=== PATIENT | male | born 1965 | race Hispanic/Latino ===

== ENCOUNTER 2016-11-25 12:15 | Emergency (ER) | payer BC, OTHER ==
[2016-11-25 12:15] VITALS: BMI 29.5
[2016-11-25 12:23] VITALS: BP 117/81; PULSE 83; RESP 16; TEMP 98.6; O2SAT 98
--- NOTE | 2016-11-25 13:26 | ED PDOC ---
Arrival/HPI - History of Present Illness Symptom Onset: Gradual Symptom Course: Unchanged Quality: Fullness Severity Level: 1 Activities at Onset: Light Context: Walking <Shane Mera - Last Filed: 11/25/16 14:49> <Lyle Mckeon - Last Filed: 11/25/16 15:26> - General Chief Complaint: Chest Pain Time Seen by Provider: 11/25/16 12:31 - History of Present Illness Narrative History of Present Illness (Text): 11/25/16 13:21 This is a 51 yr. old male with a past medical history of HIV and GERD who comes into the [facility] with complaints of chest fullness for one day. The patient states that while he was walking yesterday he started to feel chest fullness. The patient also reports that the chest fullness radiates to the throat when lying down in bed. The patient reports that when sitting up and bending forward that the fullness goes away. The patient denies taking anything for the chest fullness sensation. The patient denies any fever, chills , shortness of breath, lightheadedness, weakness, headaches or any other complaints. (Shane Mera) Past Medical History - Provider Review Nursing Documentation Reviewed: Yes - Past History Past History: Non-Contributing - Infectious Disease Hx of Infectious Diseases: None - Tetanus Immunization Tetanus Immunization: Unknown - Cardiac Hx Cardiac Disorders: Yes - Hematological/Oncological Hx Hepatitis A: Yes - Musculoskeletal/Rheumatological Hx Falls: No - Psychiatric Hx Depression: No Hx Emotional Abuse: No Hx Physical Abuse: No Hx Substance Use: No (quit 7 years ago) - Past Surgical History Past Surgical History: No Previous - Suicidal Assessment Feels Threatened In Home Enviroment: No <Shane Mera - Last Filed: 11/25/16 14:49> Family/Social History - Physician Review Nursing Documentation Reviewed: Yes Family/Social History: Hypertension Smoking Status: Never Smoked Hx Alcohol Use: Yes (social) Hx Substance Use: No (quit 7 years ago) Hx Substance Use Treatment: No <Shane Mera - Last Filed: 11/25/16 14:49> Allergies/Home Meds <Shane Mera - Last Filed: 11/25/16 14:49> <Lyle Mckeon - Last Filed: 11/25/16 15:26> Allergies/Adverse Reactions: Allergies No Known Allergies Allergy (Verified 09/02/13 06:39) Home Medications: Home Meds Medication Instructions Recorded Confirmed Atorvastatin [Lipitor] 40 mg PO DAILY 09/02/13 11/25/16 Efavirenz/Emtricitabine/Teno 1 tab PO DAILY 11/25/16 11/25/16 [Atripla 600 MG-200 MG-300 MG] Review of Systems - Physician Review All systems were reviewed & negative as marked: Yes - Review of Systems Constitutional: Normal. absent: Fatigue, Weight Change, Fevers, Night Sweats Eyes: Normal. absent: Vision Changes, Eye Pain ENT: Normal. absent: Hearing Changes, Sore Throat, Sinus Congestion Respiratory: Normal. absent: SOB, Cough, Wheezing Cardiovascular: Normal, Chest Pain. absent: Palpitations, Calf Pain, Syncope Gastrointestinal: Normal. absent: Abdominal Pain, Constipation, Diarrhea, Hematochezia, Hematemesis Genitourinary Male: Normal. absent: Dysuria, Frequency, Hematuria Musculoskeletal: Normal. absent: Back Pain, Joint Swelling, Myalgias Skin: Normal. absent: Rash, Skin Lesions, Laceration Neurological: Normal. absent: Headache, Dizziness, Disequilibrium Endocrine: Normal. absent: Polyuria, Polydipsia Hemo/Lymphatic: Normal. absent: Easy Bleeding, Easy Bruising <Shane Mera - Last Filed: 11/25/16 14:49> Physical Exam Vital Signs Reviewed: Yes Temperature: Afebrile Blood Pressure: Normal Pulse: Regular Respiratory Rate: Normal Appearance: Positive for: Well-Appearing, Non-Toxic, Comfortable Pain Distress: Mild Mental Status: Positive for: Alert and Oriented X 3 - Systems Exam Head: Present: Atraumatic, Normocephalic Pupils: Present: PERRL Extroacular Muscles: Present: EOMI. No: Gaze Palsy Conjunctiva: Present: Normal. No: Injected Mouth: Present: Moist Mucous Membranes. No: Dry, Drooling Neck: Present: Normal Range of Motion. No: JVD, Lymphadenopathy Respiratory/Chest: Present: Clear to Auscultation, Good Air Exchange. No: Respiratory Distress, Accessory Muscle Use, Wheezes Cardiovascular: Present: Regular Rate and Rhythm, Normal S1, S2. No: Murmurs, Tachycardic, Bradycardic Abdomen: Present: Normal Bowel Sounds. No: Tenderness, Distention, Peritoneal Signs, Rebound, Guarding Upper Extremity: Present: Normal Inspection. No: Cyanosis, Edema, Swelling, Erythema Lower Extremity: Present: Normal Inspection, NORMAL PULSES. No: Edema, Swelling Neurological: Present: CN II-XII Intact Skin: Present: Dry, Normal Color. No: Warm, Rashes Lymphatic: No: Cervical Adenopathy Psychiatric: Present: Alert, Oriented x 3. No: Normal Insight, Normal Concentration <Shane Mera - Last Filed: 11/25/16 14:49> Medical Decision Making - RAD Interpretation Crane Mechanic: Radiologist - EKG Interpretation Interpreted by ED Physician: Yes Type: 12 lead EKG <Shane Mera - Last Filed: 11/25/16 14:49> <Lyle Mckeon - Last Filed: 11/25/16 15:26> ED Course and Treatment: 11/25/16 13:37 This is a 51 yr old male with a past medical history of GERD and HIV who presents to [facility] complaining of chest fullness for one day. The patient had labs and imaging done including: cbc w/diff, cmp, cardiac iso, ekg, cxr. He was giving Aspirin PO 325mg. Patient will be re-evaluated after lab and imaging studies come back. Patient reports wanting to leave the hospital. Patient will sign out AMA. Patient should return to the [facility] if any new or concerning symptoms arise. (Shane Mera) 11/25/16 14:55 Patient seen and examined with resident. Came up with treatment and disposition plan with resident. 51yo male, states he has a hx of HIV, last CD4 >400, with chest discomfort. No st-segment elevations on EKG pt advised to stay in the hospital for further w/u, but asking to be dc'd home instead The patient refuses admission and wishes to leave the Emergency Department against my medical advice. Patient was told that admission to the hospital is necessary and a full explanation of the reasons why was given, and understood by patient. The risks of leaving were explained and include worsening of condition, and permanent disability and from an undiagnosed or untreated condition. The patient accepts these risks, and is in my judgment is competent and capable of understanding the clinical situation and my explanation of the risks of leaving. Patient was given the opportunity to ask questions and change mind. The patient was instructed regarding the best care for the present symptoms, and to follow up with a motion picture operator as soon as possible, or return to the Emergency Department at any time for continuing care. (Lyle Mckeon) - Lab Interpretations Lab Results: 11/25/16 13:28 11/25/16 13:28 Lab Results 11/25/16 13:28: WBC 9.2, RBC 4.34, Hgb 14.1, Hct 39.3 L, MCV 90.6, MCH 32.5, MCHC 35.9, RDW 12.3, Plt Count 254, MPV 9.7, Gran % 48.7 L, Lymph % (Auto) 35.2 H, [place] % (Auto) 13.5 H, Eos % (Auto) 2.2, Baso % (Auto) 0.4, Gran # 4.47, Lymph # 3.2, [place] # 1.2 H, Eos # 0.2, Baso # 0.04 11/25/16 13:28: Sodium 135, Potassium 3.9, Chloride 96 L, Carbon Dioxide 27, Anion Gap 16, BUN 19, Creatinine 1.1, Est GFR ( Amer) > 60, Est GFR (Non- Af Amer) > 60, Random Glucose 97, Calcium 9.7, Total Bilirubin 0.5, AST 70 H, ALT 55, Alkaline Phosphatase 95, Lactate Dehydrogenase 620, Total Creatine Kinase 848 H, CK-MB (CK-2) 5.7 H, CK-MB (CK-2) % 0.7 L, Troponin I < 0.01, Total Protein 9.0 H, Albumin 4.9 H, Globulin 4.1, Albumin/Globulin Ratio 1.2 - RAD Interpretation Radiology Orders: 11/25/16 14:05 CHEST PORTABLE [RAD] Stat 11/25/16 14:40 CHEST ONE VIEW [RAD] Stat - Medication Orders Current Medication Orders: Discontinued Medications Acetaminophen (Tylenol 325mg Tab) 325 mg PO STAT STA Stop: 11/25/16 13:14 Last Admin: 11/25/16 13:35 Dose: Aspirin (Aspirin) 325 mg PO STAT STA Stop: 11/25/16 13:21 Last Admin: 11/25/16 13:29 Dose: 325 mg <Shane Mera - Last Filed: 11/25/16 14:49> - PA / VALVE GRINDER / Resident Statement MD/DO has reviewed & agrees with the documentation as recorded. - Scribe Statement The provider has reviewed the documentation as recorded by the Scribe <Lyle Mckeon - Last Filed: 11/25/16 15:26> - Scribe Statement Betsey Berry Provider Scribe Attestation: All medical record entries made by the Scribe were at my direction and personally dictated by me. I have reviewed the chart and agree that the record accurately reflects my personal performance of the history, physical exam, medical decision making, and the department course for this patient. I have also personally directed, reviewed, and agree with the discharge instructions and disposition. (Lyle Mckeon) Disposition/Present on Arrival - Present on Arrival Any Indicators Present on Arrival: No History of DVT/PE: No History of Uncontrolled Diabetes: No Urinary Catheter: No History of Decub. Ulcer: No History Surgical Site Infection Following: None - Disposition Have Diagnosis and Disposition been Completed?: Yes Disposition Time: 02:30 <Shane Mera - Last Filed: 11/25/16 14:49> - Disposition Disposition Time: 14:30 Patient Plan: Discharge <Lyle Mckeon - Last Filed: 11/25/16 15:26> - Disposition Diagnosis: Chest pain Disposition: AGAINST MEDICAL ADVICE Condition: GUARDED Discharge Instructions (ExitCare): Chest Pain (ED) Additional Instructions: Patient should follow up with PMD Dr. Maddox with in one week. Patient should return to the Emergency Department if any new or concerning symptoms arise. Referrals: Evelio Maddox MD [Primary Care Provider] - Follow up with primary Forms: [employer] ([place])
[2016-11-25 13:37] LABS: BASO # 0.04 K/mm3 (0.0-2.0); BASO % 0.4 % (0.0-3.0); EOS # 0.2 (0.0-0.7); EOS % 2.2 % (1.5-5.0); GRAN # 4.47 (1.4-6.5); GRAN % 48.7 % (50.0-68.0); HEMOGLOBIN 14.1 gm/dL (14.0-18.0); LYMPH # 3.2 (1.2-3.4); LYMPH % 35.2 % (22.0-35.0); MEAN CELL VOLUME 90.6 fL (80.0-105.0); MEAN CORPUSCULAR HEMOGLOBIN 32.5 pg (25.0-35.0); MEAN CORPUSCULAR HGB CONC 35.9 g/dl (31.0-37.0); MEAN PLATELET VOLUME 9.7 fl (7.0-11.0); MONO # 1.2 (0.1-0.6); MONO % 13.5 % (1.0-6.0); PLATELET COUNT 254 10^3/uL (120.0-450.0); RBC 4.34 10^6/uL (3.5-6.1); RED CELL DISTRIBUTION WIDTH 12.3 % (11.5-14.5); WHITE BLOOD COUNT 9.2 10^3/ul (4.5-11.0)
[2016-11-25 13:43] LABS: ALB/GLOB RATIO 1.2 (1.1-1.8); ALBUMIN 4.9 g/dL (3.0-4.8); ALT/SGPT 55 U/L (7-56); AST/SGOT 70 U/L (15-59); BLOOD UREA NITROGEN 19 mg/dL (7-21); CALCIUM 9.7 mg/dL (8.4-10.5); GFR AFRICAN-AMERICAN > 60; GFR NON-AFRICAN AMERICAN > 60
[2016-11-25 13:58] LABS: CK MB% 0.7 % (2.5-3.0); CK-MB 5.7 ng/mL (0.0-3.6); TROPONIN I < 0.01 ng/mL
--- NOTE | 2016-11-25 14:26 | RAD ---
HISTORY: cough COMPARISON: No prior. FINDINGS: LUNGS: No active pulmonary disease. PLEURA: No significant pleural effusion identified, no pneumothorax apparent. CARDIOVASCULAR: Normal. OSSEOUS STRUCTURES: No significant abnormalities. VISUALIZED UPPER ABDOMEN: Normal. OTHER FINDINGS: None. IMPRESSION: No active disease.
--- NOTE | 2016-11-27 09:28 | CARD ---
APPROVED REPORT EKG Measurement Heart [id number] IN 212P17 [id number] <Conclusion> Sinus rhythm with 1st degree AV block Nonspecific T wave abnormality RVCD No change
== END 2016-11-25 14:55 | disposition left against medical advice (07) ==
LOC: ED 12:15
DX: R07.9 Chest pain, unspecified (principal)

== ENCOUNTER 2018-05-24 11:03 | Inpatient (IN) | payer BC, OTHER ==
[2018-05-24 11:12] VITALS: BMI 29.2
--- NOTE | 2018-05-24 11:30 | ED PDOC ---
Arrival/HPI - General Time Seen by Provider: 05/24/18 11:18 Historian: Patient - History of Present Illness Narrative History of Present Illness (Text): 05/24/18 11:21 53 year old male, pmh including HIV/hld, last CD4 count is within normal limit, nkda, complaining of chest pain x 1 week but worsened today. Pt. stated that he has been having coughing/chest pain aggravated by lying down, feels better by leaning forward, been having subjective fever, admits had cold like symptoms last month, no recent traveling, no night sweat, no dizziness, no change in vision, no palpitation, no other medical or psychological complaints. Past Medical History - Provider Review Nursing Documentation Reviewed: Yes - Past History Past History: Non-Contributing - Infectious Disease Hx of Infectious Diseases: None - Tetanus Immunization Tetanus Immunization: Unknown - Cardiac Hx Cardiac Disorders: Yes - Hematological/Oncological Hx Hepatitis A: Yes - Musculoskeletal/Rheumatological Hx Falls: No - Psychiatric Hx Depression: No Hx Emotional Abuse: No Hx Physical Abuse: No Hx Substance Use: No (quit 7 years ago) - Past Surgical History Past Surgical History: No Previous - Suicidal Assessment Feels Threatened In Home Enviroment: No Family/Social History - Physician Review Nursing Documentation Reviewed: Yes Family/Social History: Unknown Family HX Smoking Status: Never Smoked Hx Alcohol Use: Yes (social) Hx Substance Use: No (quit 7 years ago) Hx Substance Use Treatment: No Allergies/Home Meds Allergies/Adverse Reactions: Allergies No Known Allergies Allergy (Verified 05/24/18 20:36) Home Medications: Home Meds Medication Instructions Recorded Confirmed Atorvastatin [Lipitor] 40 mg PO DAILY 09/02/13 05/24/18 Alprazolam [Xanax] 1 tab PO PRN PRN 05/24/18 05/24/18 Emtricitab/Rilpiviri/Tenof [place] 1 tab PO DAILY 05/24/18 05/24/18 [Odefsey Tablet] Review of Systems - Review of Systems Constitutional: Fevers. absent: Fatigue Eyes: absent: Vision Changes ENT: absent: Hearing Changes Respiratory: Cough. absent: SOB Cardiovascular: Chest Pain Gastrointestinal: absent: Abdominal Pain, Diarrhea, Nausea, Vomiting Genitourinary Male: absent: Dysuria Musculoskeletal: absent: Arthralgias Skin: absent: Rash Neurological: absent: Headache Psychiatric: absent: Anxiety, Depression, Suicidal Ideation Physical Exam Vital Signs Reviewed: Yes Temperature: Afebrile Blood Pressure: Normal Pulse: Regular Respiratory Rate: Normal Appearance: Positive for: Well-Appearing, Non-Toxic Pain Distress: Mild Mental Status: Positive for: Alert and Oriented X 3 - Systems Exam Head: Present: Atraumatic, Normocephalic Pupils: Present: PERRL Extroacular Muscles: Present: EOMI Conjunctiva: Present: Normal Mouth: Present: Moist Mucous Membranes Neck: Present: Normal Range of Motion Respiratory/Chest: Present: Clear to Auscultation, Good Air Exchange. No: Respiratory Distress, Accessory Muscle Use, Wheezes, Decreased Breath Sounds, Rales, Retracting, Rhonchi, Tachypneic, Tender to Palpation Cardiovascular: Present: Regular Rate and Rhythm, Normal S1, S2, Other (distant/low volume heart sound). No: Murmurs Abdomen: No: Tenderness, Distention, Peritoneal Signs Back: Present: Normal Inspection Upper Extremity: Present: Normal Inspection. No: Cyanosis, Edema Lower Extremity: Present: Normal Inspection. No: Edema Neurological: Present: GCS=15, CN II-XII Intact, Speech Normal Skin: Present: Warm, Dry, Normal Color. No: Rashes Psychiatric: Present: Alert, Oriented x 3, Normal Insight, Normal Concentration Medical Decision Making ED Course and Treatment: 05/24/18 11:31 Differential including but not limited to: pericarditis vs. Pericardial effusion vs. STEMI vs. CAD/ACS vs. pneumonia -labs -ekg -chest xray -IVF/toradol/pepcid -Observe and reassess 05/24/18 13:08 -Chest xray ER wet read show +cardiomegally, BNP added 05/24/18 13:35 -EKG: NSR @ 90 BPM, chronic T wave inversion lead V3, no ST elevation or depress ion, compared with previous ekg. -Chest xray Cardiomegaly. Poor inspiration with low lung volumes, crowded bronchovascular markings and mild bibasilar atelectasis and/or infiltrates and bilateral effusions. Central pulmonary vasculature is slightly increased love which may also be secondary to poor inspiration.. -CTA show: Large pericardial effusion. No evidence of acute central pulmonary embolus. Small to medium-sized bilateral effusions left larger than right. Bibasilar atelectasis left greater than right. There are scarring changes seen in the lingular and middle lobe regions. -Labs show no acute findings except Na 126 with wbc 13.1 -ESR 89 -Trop is negative -BNP within normal limit. -Urinalysis show no UTI. -Beside sonogram confirmed for pericardial effusion performed by me. -I spoke to the hospitalist, Dr. Aguilar (since Dr. Cutler and Dr. Horton declined this case), discussed about the case/labs/radiology result, agreed to admit to their service. 05/24/18 15:24 -I spoke to the ICU oncall Ashleigh Melendrez, discussed about the case/labs/radiology results, will come to the ER to evaluate but request etl data architect to be notified. paging Dr. Foster covering for Dr. Baker (etl data architect irwin). -Pt. is hemodynamically stable, doesn't need pericardialcentesis at this time, there is no cardiac tamponade. 05/24/18 15:47 -I spoke to Dr. Dexter Foster, discussed about the case, request echo (ordered and the ER laboratory secretary Ruby paging the echocardiogram tech) and will consult on this case plus follow up the echo report with no additional suggestion/recommendation at this time. 05/24/18 16:07 -Dr. Sotelo, evaluated the patient and stated that the patient can go to the telemetry and no ICU indication at this time, agreed by Dr. Salvador (ER attending). -I spoke to the nursing tooling supervisor congressional district aide as well that she is calling the echo sonogram tech to come to the hospital for stat echo. - RAD Interpretation Radiology Orders: Date of service: 05/24/2018 HISTORY: medical clearance COMPARISON: Comparison chest 11/25/2016. FINDINGS: LUNGS: Poor inspiration with low lung volumes, crowded bronchovascular markings and mild bibasilar atelectasis and/or infiltrates and bilateral effusions. Central pulmonary vasculature is slightly increased love which may also be secondary to poor inspiration.. PLEURA: As above. No pneumothorax apparent. CARDIOVASCULAR: Cardiomegaly. No o aortic atherosclerotic calcification present. OSSEOUS STRUCTURES: No significant abnormalities. VISUALIZED UPPER ABDOMEN: Normal. OTHER FINDINGS: None. IMPRESSION: Cardiomegaly. Poor inspiration with low lung volumes, crowded bronchovascular markings and mild bibasilar atelectasis and/or infiltrates and bilateral effusions. Central pulmonary vasculature is slightly increased love which may also be secondary to poor inspiration.. CTA: Date of service: 05/24/2018 PROCEDURE: CT Chest with contrast (Pulmonary Angiogram) HISTORY: Chest pain enlarged heart with elevated WBC/ESR COMPARISON: Comparison made with chest x-ray obtained earlier same day. The bed tram TECHNIQUE: Axial computed tomography images were obtained of the chest in the pulmonary arterial phase of enhancement. Coronal and sagittal reformatted images were created and reviewed. Intravenous contrast dose: 100 cc Omnipaque 350 contrast material. Radiation dose: Total exam DLP = 475.99 mGy-cm. This CT exam was performed using one or more of the following dose reduction techniques: Automated exposure control, adjustment of the mA and/or kV according to patient size, and/or use of iterative reconstruction technique. FINDINGS: PULMONARY ARTERIES: Unremarkable. No pulmonary embolism. Pulmonary trunk measures approximately 2.6 cm. AORTA: No acute findings. No thoracic aortic aneurysm. Ascending thoracic aorta measures approximately 2.8 cm and descending thoracic aorta measures approximately 2.0 cm. No aortic atherosclerotic calcification or mural plaque present. LUNGS: Hiyht-nlnzqx-vpklb bilateral effusions and bibasilar atelectasis left larger than right.. There also appears to be some mild atelectasis and/or scarring in the lingular and middle lobe regions. PLEURAL SPACES: As above. No pneumothorax. HEART: Heart size within range of normal however there is a very large pericardial effusion. No significant pericardial effusion. LYMPH NODES: There are a few small nonspecific mediastinal lymph nodes. No significant hilar adenopathy. Trachea midline and patent with no large central endoluminal lesions. BONES, CHEST WALL: Unremarkable. No fracture or destructive lesion OTHER FINDINGS: Unremarkable. IMPRESSION: Large pericardial effusion. No evidence of acute central pulmonary embolus. Small to medium-sized bilateral effusions left larger than right. Bibasilar atelectasis left greater than right. There are scarring changes seen in the lingular and middle lobe regions. Front Line Supervisor: Radiologist - EKG Interpretation EKG Interpretation (Text): 05/24/18 11:33 -EKG: NSR @ 90 BPM, chronic T wave inversion lead V3, no ST elevation or depression, compared with previous ekg. Interpreted by ED Physician: Yes Type: 12 lead EKG Comparison: Com.w/previous EKG - PA / ELECTRICAL HIGH TENSION TESTER / Resident Statement MD/DO has reviewed & agrees with the documentation as recorded. Disposition/Present on Arrival - Present on Arrival Any Indicators Present on Arrival: No History of DVT/PE: No History of Uncontrolled Diabetes: No Urinary Catheter: No History of Decub. Ulcer: No History Surgical Site Infection Following: None - Disposition Have Diagnosis and Disposition been Completed?: Yes Diagnosis: Pericardial effusion, Chest pain Disposition: HOSPITALIZED Disposition Time: 15:19 Patient Plan: Admission, Telemetry Patient Problems: Current Active Problems Problem Status Onset Chest pain Acute Pericardial effusion Acute Condition: GUARDED
[2018-05-24] MEDS: Sodium Chloride 0.9% 1,000 ML IV SCH (11:46)
[2018-05-24 11:49] LABS: BASO # 0.03 K/mm3 (0.0-2.0); BASO % 0.2 % (0.0-3.0); EOS # 0.2 (0.0-0.7); EOS % 1.8 % (1.5-5.0); HEMOGLOBIN 12.3 g/dL (14.0-18.0); LYMPH # 2.1 (1.2-3.4); LYMPH % 15.9 % (22.0-35.0); MEAN CELL VOLUME 89.5 fl (80.0-105.0); MEAN CORPUSCULAR HEMOGLOBIN 30.7 pg (25.0-35.0); MEAN CORPUSCULAR HGB CONC 34.3 g/dl (31.0-37.0); MEAN PLATELET VOLUME 8.6 fl (7.0-11.0); MONO # 1.4 (0.1-0.6); RBC 4.01 10^6/uL (3.5-6.1); RED CELL DISTRIBUTION WIDTH 12.3 % (11.5-14.5); WHITE BLOOD COUNT 13.1 10^3/uL (4.5-11.0)
[2018-05-24 11:54] LABS: ALB/GLOB RATIO 1.1 (1.1-1.8); ALBUMIN 4.3 g/dL (3.0-4.8); BLOOD UREA NITROGEN 18 mg/dL (7-21); GFR NON-AFRICAN AMERICAN > 60; LIPASE 16 U/L (23-300)
[2018-05-24 11:55] LABS: ALT/SGPT 56 U/L (7-56); AST/SGOT 58 U/L (17-59)
[2018-05-24 12:05] LABS: TROPONIN I < 0.01 ng/mL
--- NOTE | 2018-05-24 13:05 | RAD ---
Date of service: 05/24/2018 HISTORY: medical clearance COMPARISON: Comparison chest 11/25/2016. FINDINGS: LUNGS: Poor inspiration with low lung volumes, crowded bronchovascular markings and mild bibasilar atelectasis and/or infiltrates and bilateral effusions. Central pulmonary vasculature is slightly increased love which may also be secondary to poor inspiration.. PLEURA: As above. No pneumothorax apparent. CARDIOVASCULAR: Cardiomegaly. No o aortic atherosclerotic calcification present. OSSEOUS STRUCTURES: No significant abnormalities. VISUALIZED UPPER ABDOMEN: Normal. OTHER FINDINGS: None. IMPRESSION: Cardiomegaly. Poor inspiration with low lung volumes, crowded bronchovascular markings and mild bibasilar atelectasis and/or infiltrates and bilateral effusions. Central pulmonary vasculature is slightly increased love which may also be secondary to poor inspiration..
[2018-05-24 13:21] LABS: URINE BILIRUBIN NEGATIVE (NEGATIVE); URINE BLOOD NEGATIVE (NEGATIVE); URINE GLUCOSE (UA) NEGATIVE (NEGATIVE); URINE LEUKOCYTE ESTERASE NEGATIVE Leu/uL (NEGATIVE); URINE PROTEIN 30 mg/dL (<30 mg/dL); URINE UROBILINOGEN 0.2 E.U./dL (<1 E.U./dL)
[2018-05-24 13:23] LABS: URINE APPEARANCE CLEAR (CLEAR); URINE COLOR YELLOW (YELLOW)
[2018-05-24 13:25] LABS: URINE BACTERIA FEW /hpf; URINE RBC 0 - 2 /hpf (0-2); URINE WBC 0 - 2 /hpf (0-6)
[2018-05-24] MEDS ORDERED: Iohexol 350 MG/100 ML VIAL ONE (14:26)
--- NOTE | 2018-05-24 14:57 | CT ---
Date of service: 05/24/2018 PROCEDURE: CT Chest with contrast (Pulmonary Angiogram) HISTORY: Chest pain enlarged heart with elevated WBC/ESR COMPARISON: Comparison made with chest x-ray obtained earlier same day. The bed tram TECHNIQUE: Axial computed tomography images were obtained of the chest in the pulmonary arterial phase of enhancement. Coronal and sagittal reformatted images were created and reviewed. Intravenous contrast dose: 100 cc Omnipaque 350 contrast material. Radiation dose: Total exam DLP = 475.99 mGy-cm. This CT exam was performed using one or more of the following dose reduction techniques: Automated exposure control, adjustment of the mA and/or kV according to patient size, and/or use of iterative reconstruction technique. FINDINGS: PULMONARY ARTERIES: Unremarkable. No pulmonary embolism. Pulmonary trunk measures approximately 2.6 cm. AORTA: No acute findings. No thoracic aortic aneurysm. Ascending thoracic aorta measures approximately 2.8 cm and descending thoracic aorta measures approximately 2.0 cm. No aortic atherosclerotic calcification or mural plaque present. LUNGS: Ofdtp-olqnhi-dbole bilateral effusions and bibasilar atelectasis left larger than right.. There also appears to be some mild atelectasis and/or scarring in the lingular and middle lobe regions. PLEURAL SPACES: As above. No pneumothorax. HEART: Heart size within range of normal however there is a very large pericardial effusion. No significant pericardial effusion. LYMPH NODES: There are a few small nonspecific mediastinal lymph nodes. No significant hilar adenopathy. Trachea midline and patent with no large central endoluminal lesions. BONES, CHEST WALL: Unremarkable. No fracture or destructive lesion OTHER FINDINGS: Unremarkable. IMPRESSION: Large pericardial effusion. No evidence of acute central pulmonary embolus. Small to medium-sized bilateral effusions left larger than right. Bibasilar atelectasis left greater than right. There are scarring changes seen in the lingular and middle lobe regions.
--- NOTE | 2018-05-24 16:34 | CP.PCM.HP ---
<Ruiz Mendoza - Last Filed: 05/24/18 16:30> History of Present Illness - History of Present Illness History of Present Illness: 53 year old male with past medical history of HIV on Odefsey (Last CD4 1000 as per patient), hyponatremia likely secondary to SIADH, hepatitis B, and HLD presents to the hospital for 1 week of chest pain. Pain is substernal and sharp in nature. Pain radiates intermittently to the jaw. Pain exacerbated by laying flat. Patient admits to taking amoxicillin for pain, but it did not help. Patient states he had a viral-like illness 6 weeks ago. Patient also admits to having a gum graft due to gum recession 3 weeks ago. Patient denies to excessive liquid intake. Denies shortness of breath, nausea, vomiting, diarrhea, fever, chills, dysuria, numbness, tingling, abdominal pain. Medical hx: As above Surgical Hx: Root canal 1 year ago, Gum graft surgery 3 weeks ago Family Hx: Father of heart attack Social Hx: Denies alcohol, tobacco, or illicit drug use Allergies: NKDA Medication: Odefsey, Xanax, Lipitor PMD/ID: Dr. Maddox Present on Admission - Present on Admission Any Indicators Present on Admission: No Review of Systems - Review of Systems Review of Systems: 12 point ROS as per HPI, otherwise negative Past Patient History - Infectious Disease Hx of Infectious Diseases: None - Tetanus Immunizations Tetanus Immunization: Unknown - Past Social History Smoking Status: Never Smoked - CARDIAC Hx Cardiac Disorders: Yes - PULMONARY Hx Respiratory Disorders: No - NEUROLOGICAL Hx Neurological Disorder: No - HEENT Hx HEENT Problems: No - RENAL Hx Chronic Kidney Disease: No - ENDOCRINE/METABOLIC Hx Endocrine Disorders: No - HEMATOLOGICAL/ONCOLOGICAL Hx Hepatitis A: Yes - INTEGUMENTARY Hx Dermatological Problems: No - MUSCULOSKELETAL/RHEUMATOLOGICAL Hx Falls: No - GASTROINTESTINAL Hx Gastrointestinal Disorders: No - GENITOURINARY/GYNECOLOGICAL Hx Genitourinary Disorders: No - PSYCHIATRIC Hx Depression: No Hx Emotional Abuse: No Hx Physical Abuse: No Hx Substance Use: No (quit 7 years ago) - SURGICAL HISTORY Hx Surgeries: No - ANESTHESIA Hx Anesthesia: No Meds Allergies/Adverse Reactions: Allergies Allergy/AdvReac Type Severity Reaction Status Date / Time No Known Allergies Allergy Verified 05/24/18 20:36 Physical Exam - Constitutional Appears: Non-toxic, No Acute Distress - Head Exam Head Exam: ATRAUMATIC, NORMAL INSPECTION, NORMOCEPHALIC - Eye Exam Eye Exam: EOMI, Normal appearance - ENT Exam ENT Exam: Mucous Membranes Moist - Respiratory Exam Respiratory Exam: Clear to Auscultation Bilateral, NORMAL BREATHING PATTERN - Cardiovascular Exam Cardiovascular Exam: RRR, +S1, +S2. absent: JVD, Rubs - GI/Abdominal Exam GI & Abdominal Exam: Normal Bowel Sounds, Soft. absent: Tenderness - Extremities Exam Extremities exam: Positive for: pedal edema (Trace b/l) - Neurological Exam Neurological exam: Alert, CN II-XII Intact, Oriented x3 - Psychiatric Exam Psychiatric exam: Normal Affect, Normal Mood - Skin Skin Exam: Intact, Normal Color, Warm Results - Vital Signs Recent Vital Signs: Last Vital Signs Temp 98.0 F 05/24/18 11:04 Pulse 81 05/24/18 15:24 Resp 19 05/24/18 15:24 BP 119/71 05/24/18 15:24 Pulse Ox 97 05/24/18 15:24 - Labs Result Diagrams: 05/24/18 11:30 05/24/18 11:30 Labs: Laboratory Results - last 24 hr 05/24/18 05/24/18 05/24/18 11:30 11:30 11:30 WBC 13.1 H RBC 4.01 Hgb 12.3 L Hct 35.9 L MCV 89.5 MCH 30.7 MCHC 34.3 RDW 12.3 Plt Count 419 MPV 8.6 Neut % (Auto) 71.1 H Lymph % (Auto) 15.9 L [place] % (Auto) 11.0 H Eos % (Auto) 1.8 Baso % (Auto) 0.2 Lymph # (Auto) 2.1 [place] # (Auto) 1.4 H Eos # (Auto) 0.2 Baso # (Auto) 0.03 Absolute Neuts (auto) 9.33 H ESR 89 H Sodium 126 L Potassium 4.6 Chloride 90 L Carbon Dioxide 26 Anion Gap 14 BUN 18 Creatinine 1.0 Est GFR ( Amer) > 60 Est GFR (Non-Af Amer) > 60 Random Glucose 99 Calcium 9.0 Magnesium 1.8 Total Bilirubin 0.8 AST 58 ALT 56 Alkaline Phosphatase 68 Troponin I < 0.01 NT-Pro-B Natriuret Pep 306 Total Protein 8.2 Albumin 4.3 Globulin 3.9 Albumin/Globulin Ratio 1.1 Lipase 16 L Urine Color Urine Appearance Urine pH Ur Specific [place] Urine Protein Urine Glucose (UA) Urine Ketones Urine Blood Urine Nitrate Urine Bilirubin Urine Urobilinogen Ur Leukocyte Esterase Urine RBC Urine WBC Ur Epithelial Cells Urine Bacteria Urine Other 05/24/18 13:00 WBC RBC Hgb Hct MCV MCH MCHC RDW Plt Count MPV Neut % (Auto) Lymph % (Auto) [place] % (Auto) Eos % (Auto) Baso % (Auto) Lymph # (Auto) [place] # (Auto) Eos # (Auto) Baso # (Auto) Absolute Neuts (auto) ESR Sodium Potassium Chloride Carbon Dioxide Anion Gap BUN Creatinine Est GFR ( Amer) Est GFR (Non-Af Amer) Random Glucose Calcium Magnesium Total Bilirubin AST ALT Alkaline Phosphatase Troponin I NT-Pro-B Natriuret Pep Total Protein Albumin Globulin Albumin/Globulin Ratio Lipase Urine Color Yellow Urine Appearance Clear Urine pH 6.0 Ur Specific [place] >= 1.030 Urine Protein 30 H Urine Glucose (UA) Negative Urine Ketones Negative Urine Blood Negative Urine Nitrate Negative Urine Bilirubin Negative Urine Urobilinogen 0.2 Ur Leukocyte Esterase Negative Urine RBC 0 - 2 Urine WBC 0 - 2 Ur Epithelial Cells None Urine Bacteria Few Urine Other Fiber Assessment & Plan - Assessment and Plan (Free Text) Plan: 53 year old male with past medical history of HIV on Odefsey, hyponatremia likely secondary to SIADH, hepatitis B, and HLD presents with pericardial effusion in the setting of hyponatremia. Cardiology recommends STAT echocardiogram as per ED. Patient also evaluated by [facility] and recommended for admission to telemetry. Pericardial effusion Hemodynamically stable Echocardiogram STAT EKG NSR, without any ST abnormalities Troponin negative, will trend Cardiology consulted, Dr. Foster Continue NS @ 100 Lipid panel, TSH, HgA1c, HERMINIO ordered Hyponatremia Possible SIADH Serum osm, urine na Nephrology consulted, Dr. Mora Hx of HIV Continue Odefsey CD4 count ordered ID consulted HLD Continue Lipitor Hx of Hep B Will reorder hepatitis panel Prophylaxis SCDs Pepcid Kelly, PGY-3 <Matteo Aguilar - Last Filed: 05/25/18 06:55> Results - Vital Signs Recent Vital Signs: Last Vital Signs Temp 99.6 F 05/25/18 00:01 Pulse 89 05/25/18 06:00 Resp 20 05/25/18 00:01 BP 123/83 05/25/18 06:00 Pulse Ox 96 05/25/18 00:01 - Labs Result Diagrams: 05/24/18 11:30 05/25/18 01:25 Labs: Laboratory Results - last 24 hr 05/24/18 05/24/18 05/24/18 11:30 11:30 11:30 WBC 13.1 H RBC 4.01 Hgb 12.3 L Hct 35.9 L MCV 89.5 MCH 30.7 MCHC 34.3 RDW 12.3 Plt Count 419 MPV 8.6 Neut % (Auto) 71.1 H Lymph % (Auto) 15.9 L [place] % (Auto) 11.0 H Eos % (Auto) 1.8 Baso % (Auto) 0.2 Lymph # (Auto) 2.1 [place] # (Auto) 1.4 H Eos # (Auto) 0.2 Baso # (Auto) 0.03 Absolute Neuts (auto) 9.33 H ESR 89 H Sodium 126 L Potassium 4.6 Chloride 90 L Carbon Dioxide 26 Anion Gap 14 BUN 18 Creatinine 1.0 Est GFR ( Amer) > 60 Est GFR (Non-Af Amer) > 60 Random Glucose 99 Serum Osmolality Calcium 9.0 Magnesium 1.8 Total Bilirubin 0.8 AST 58 ALT 56 Alkaline Phosphatase 68 Lactate Dehydrogenase Total Creatine Kinase CK-MB (CK-2) CK-MB (CK-2) % Troponin I < 0.01 NT-Pro-B Natriuret Pep 306 Total Protein 8.2 Albumin 4.3 Globulin 3.9 Albumin/Globulin Ratio 1.1 Triglycerides Cholesterol LDL Cholesterol Direct HDL Cholesterol Lipase 16 L TSH 3rd Generation Urine Color Urine Appearance Urine pH Ur Specific [place] Urine Protein Urine Glucose (UA) Urine Ketones Urine Blood Urine Nitrate Urine Bilirubin Urine Urobilinogen Ur Leukocyte Esterase Urine RBC Urine WBC Ur Epithelial Cells Urine Bacteria Urine Other 05/24/18 05/24/18 05/24/18 13:00 17:20 17:20 WBC RBC Hgb Hct MCV MCH MCHC RDW Plt Count MPV Neut % (Auto) Lymph % (Auto) [place] % (Auto) Eos % (Auto) Baso % (Auto) Lymph # (Auto) [place] # (Auto) Eos # (Auto) Baso # (Auto) Absolute Neuts (auto) ESR Sodium Potassium Chloride Carbon Dioxide Anion Gap BUN Creatinine Est GFR ( Amer) Est GFR (Non-Af Amer) Random Glucose Serum Osmolality 257 L Calcium Magnesium Total Bilirubin AST ALT Alkaline Phosphatase Lactate Dehydrogenase Total Creatine Kinase CK-MB (CK-2) CK-MB (CK-2) % Troponin I < 0.01 NT-Pro-B Natriuret Pep Total Protein Albumin Globulin Albumin/Globulin Ratio Triglycerides 51 Cholesterol 123 L LDL Cholesterol Direct 89 HDL Cholesterol 27 L Lipase TSH 3rd Generation 0.87 Urine Color Yellow Urine Appearance Clear Urine pH 6.0 Ur Specific [place] >= 1.030 Urine Protein 30 H Urine Glucose (UA) Negative Urine Ketones Negative Urine Blood Negative Urine Nitrate Negative Urine Bilirubin Negative Urine Urobilinogen 0.2 Ur Leukocyte Esterase Negative Urine RBC 0 - 2 Urine WBC 0 - 2 Ur Epithelial Cells None Urine Bacteria Few Urine Other Fiber 05/24/18 05/25/18 21:45 01:25 WBC RBC Hgb Hct MCV MCH MCHC RDW Plt Count MPV Neut % (Auto) Lymph % (Auto) [place] % (Auto) Eos % (Auto) Baso % (Auto) Lymph # (Auto) [place] # (Auto) Eos # (Auto) Baso # (Auto) Absolute Neuts (auto) ESR Sodium 126 L Potassium 4.3 Chloride 92 L Carbon Dioxide 26 Anion Gap 12 BUN 16 Creatinine 1.0 Est GFR ( Amer) > 60 Est GFR (Non-Af Amer) > 60 Random Glucose 103 Serum Osmolality Calcium 8.3 L Magnesium Total Bilirubin AST ALT Alkaline Phosphatase Lactate Dehydrogenase 435 Total Creatine Kinase 504 H CK-MB (CK-2) 3.7 H CK-MB (CK-2) % Cancelled Troponin I < 0.01 NT-Pro-B Natriuret Pep Total Protein Albumin Globulin Albumin/Globulin Ratio Triglycerides Cholesterol LDL Cholesterol Direct HDL Cholesterol Lipase TSH 3rd Generation Urine Color Urine Appearance Urine pH Ur Specific [place] Urine Protein Urine Glucose (UA) Urine Ketones Urine Blood Urine Nitrate Urine Bilirubin Urine Urobilinogen Ur Leukocyte Esterase Urine RBC Urine WBC Ur Epithelial Cells Urine Bacteria Urine Other Attending/Attestation - Attestation I have personally seen and examined this patient.: Yes I have fully participated in the care of the patient.: Yes I have reviewed all pertinent clinical information: Yes Notes (Text): 05/24/18 53 year old male with past medical history of HIV, dyslipidemia and chronic hyponatremia who presents with complaint of shortness of breath and chest pain; found to have large pericardial effusion on CT chest. Pulmonary and cardiology evaluations were requested. Echocardiogram is ordered. Bedside sonogram from ER was done. Will obtain serial cardiac enzymes. ID evaluation is requested. Continue with HAART therapy. Hepatitis panel, ESR, TSH, CRP and HERMINIO studies. Nephrology evaluation requested for hyponatremia. Matteo Aguilar MD Hospitalist.
--- NOTE | 2018-05-24 16:54 | CP.PCM.CON ---
History of Present Illness - History of Present Illness History of Present Illness: MICU CONSULT NOTE HPI Patient is 53yo male with PMhx of HIV, last CD4 count >1000 as per patient, presents with 1 week history of hepatitis B, hyponatremia, and HLD presents with 1 week history of chest, substernal, sharp, radiates to jaw. Pt found to have pericardial effusion on CT chest angiogram, which is ntoed to be large. Pt r eports viral like illness 6 weeks ago. Pt denies fever, chills, cough, SOB, palpitations, CHAPA, dizziness, recent foreign travel. No other constitutional symptoms. Bedside ECHO demonstrated mild to moderate pericardial effusion, with no diastolic collapse. Currently afebrile, BP stable, comfortable in NAD Medical hx: As above Surgical Hx: Gum graft surgery Family Hx: CAD Social Hx: Denies alcohol, tobacco, or illicit drug use Allergies: NKDA Review of Systems - Review of Systems Review of Systems: as per HPI Past Patient History - Infectious Disease Hx of Infectious Diseases: None - Tetanus Immunizations Tetanus Immunization: Unknown - Past Social History Smoking Status: Never Smoked - CARDIAC Hx Cardiac Disorders: Yes - PULMONARY Hx Respiratory Disorders: No - NEUROLOGICAL Hx Neurological Disorder: No - HEENT Hx HEENT Problems: No - RENAL Hx Chronic Kidney Disease: No - ENDOCRINE/METABOLIC Hx Endocrine Disorders: No - HEMATOLOGICAL/ONCOLOGICAL Hx Hepatitis A: Yes - INTEGUMENTARY Hx Dermatological Problems: No - MUSCULOSKELETAL/RHEUMATOLOGICAL Hx Falls: No - GASTROINTESTINAL Hx Gastrointestinal Disorders: No - GENITOURINARY/GYNECOLOGICAL Hx Genitourinary Disorders: No - PSYCHIATRIC Hx Depression: No Hx Emotional Abuse: No Hx Physical Abuse: No Hx Substance Use: No (quit 7 years ago) - SURGICAL HISTORY Hx Surgeries: No - ANESTHESIA Hx Anesthesia: No Meds Allergies/Adverse Reactions: Allergies Allergy/AdvReac Type Severity Reaction Status Date / Time No Known Allergies Allergy Verified 09/02/13 06:39 - Medications Medications: Current Medications Alprazolam (Xanax) 0.5 mg PO HS PRN; Protocol PRN Reason: Anxiety Atorvastatin Calcium (Lipitor) 40 mg PO DIN YUNI Famotidine (Pepcid) 40 mg PO HS YUNI Home Med (Home Med) 1 unit PO DAILY YUNI Sodium Chloride (Sodium Chloride 0.9%) 1,000 mls @ 100 mls/hr IV .Q10H YUNI Last Admin: 05/24/18 11:46 Dose: 100 mls/hr Ibuprofen (Motrin Tab) 400 mg PO Q6H PRN PRN Reason: Pain, Mild (1-3) Physical Exam - Constitutional Appears: Non-toxic, No Acute Distress - Head Exam Head Exam: NORMAL INSPECTION - Eye Exam Eye Exam: Normal appearance - ENT Exam ENT Exam: Mucous Membranes Moist - Respiratory Exam Respiratory Exam: Clear to Auscultation Bilateral, NORMAL BREATHING PATTERN - Cardiovascular Exam Cardiovascular Exam: REGULAR RHYTHM, +S1, +S2 - GI/Abdominal Exam GI & Abdominal Exam: Normal Bowel Sounds, Soft - Extremities Exam Extremities exam: Positive for: normal inspection - Neurological Exam Neurological exam: Alert, Oriented x3 - Psychiatric Exam Psychiatric exam: Normal Affect - Skin Skin Exam: Normal Color, Warm Results - Vital Signs Recent Vital Signs: Last Vital Signs Temp 98.0 F 05/24/18 11:04 Pulse 81 05/24/18 15:24 Resp 19 05/24/18 15:24 BP 119/71 05/24/18 15:24 Pulse Ox 97 05/24/18 15:24 - Labs Result Diagrams: 05/24/18 11:30 05/24/18 11:30 Labs: Laboratory Results - last 24 hr 05/24/18 05/24/18 05/24/18 11:30 11:30 11:30 WBC 13.1 H RBC 4.01 Hgb 12.3 L Hct 35.9 L MCV 89.5 MCH 30.7 MCHC 34.3 RDW 12.3 Plt Count 419 MPV 8.6 Neut % (Auto) 71.1 H Lymph % (Auto) 15.9 L [place] % (Auto) 11.0 H Eos % (Auto) 1.8 Baso % (Auto) 0.2 Lymph # (Auto) 2.1 [place] # (Auto) 1.4 H Eos # (Auto) 0.2 Baso # (Auto) 0.03 Absolute Neuts (auto) 9.33 H ESR 89 H Sodium 126 L Potassium 4.6 Chloride 90 L Carbon Dioxide 26 Anion Gap 14 BUN 18 Creatinine 1.0 Est GFR ( Amer) > 60 Est GFR (Non-Af Amer) > 60 Random Glucose 99 Calcium 9.0 Magnesium 1.8 Total Bilirubin 0.8 AST 58 ALT 56 Alkaline Phosphatase 68 Troponin I < 0.01 NT-Pro-B Natriuret Pep 306 Total Protein 8.2 Albumin 4.3 Globulin 3.9 Albumin/Globulin Ratio 1.1 Lipase 16 L Urine Color Urine Appearance Urine pH Ur Specific [place] Urine Protein Urine Glucose (UA) Urine Ketones Urine Blood Urine Nitrate Urine Bilirubin Urine Urobilinogen Ur Leukocyte Esterase Urine RBC Urine WBC Ur Epithelial Cells Urine Bacteria Urine Other 05/24/18 13:00 WBC RBC Hgb Hct MCV MCH MCHC RDW Plt Count MPV Neut % (Auto) Lymph % (Auto) [place] % (Auto) Eos % (Auto) Baso % (Auto) Lymph # (Auto) [place] # (Auto) Eos # (Auto) Baso # (Auto) Absolute Neuts (auto) ESR Sodium Potassium Chloride Carbon Dioxide Anion Gap BUN Creatinine Est GFR ( Amer) Est GFR (Non-Af Amer) Random Glucose Calcium Magnesium Total Bilirubin AST ALT Alkaline Phosphatase Troponin I NT-Pro-B Natriuret Pep Total Protein Albumin Globulin Albumin/Globulin Ratio Lipase Urine Color Yellow Urine Appearance Clear Urine pH 6.0 Ur Specific [place] >= 1.030 Urine Protein 30 H Urine Glucose (UA) Negative Urine Ketones Negative Urine Blood Negative Urine Nitrate Negative Urine Bilirubin Negative Urine Urobilinogen 0.2 Ur Leukocyte Esterase Negative Urine RBC 0 - 2 Urine WBC 0 - 2 Ur Epithelial Cells None Urine Bacteria Few Urine Other Fiber - Imaging and Cardiology CT scan - chest Status: Image reviewed by me, Report reviewed by me Chest x-ray Status: Image reviewed by me, Report reviewed by me Assessment & Plan - Assessment and Plan (Free Text) Assessment: 53yo male a/w pericardial effusion Pericardial Effusion Hx of HIV HLD Hyponatremia - currently afebrile, BP stable, comfortable in NAD, st 99% on room air, denies SOB - Bedside focused U/S demonstrated good LV function, mild to moderate percardial effusion - EKG, NSR, no evidence of electrical alternans - No clinical evidence of cardiac tamponade Recommend: - supp o2 as needed, duonebs PRN - ID eval - BP control - Official ECHO - Cardio consult - Troponin q6hr - resume HAART - check ESR, CRP - GI pp - DVT ppx - Monitor on tele
[2018-05-24 17:39] LABS: HDL CHOLESTEROL 27 mg/dL (29-60)
[2018-05-24 17:50] LABS: LDL CHOLESTEROL 89 mg/dL (0-129)
[2018-05-24 17:54] LABS: TROPONIN I < 0.01 ng/mL
--- NOTE | 2018-05-24 21:24 | CARD ---
APPROVED REPORT Date of service: 05/24/2018 EKG Measurement Heart [id number] <Conclusion> Normal sinus rhythm Nonspecific T wave abnormality Abnormal ECG
[2018-05-24] MEDS ORDERED: ODEFSEY PO SCH (22:00)
[2018-05-24] MEDS ORDERED: Pneumococcal 23-Valent Vaccine IM ONE (22:23)
[2018-05-24] MEDS ORDERED: Influenza Vaccine 60 mcg/0.5 mL SYR (4YR UP) IM ONE (22:23)
[2018-05-24 23:25] LABS: CK-MB 3.7 ng/mL (0.0-3.6); TROPONIN I < 0.01 ng/mL
[2018-05-25] MEDS: Sodium Chloride 0.9% 1,000 ML IV SCH ×2 (01:31→08:21)
[2018-05-25 01:40] LABS: BLOOD UREA NITROGEN 16 mg/dL (7-21); CALCIUM 8.3 mg/dL (8.4-10.5); GFR NON-AFRICAN AMERICAN > 60
[2018-05-25 02:58] VITALS: O2SAT 96
[2018-05-25 07:04] LABS: MEAN CELL VOLUME 89.4 fl (80.0-105.0); MEAN CORPUSCULAR HEMOGLOBIN 30.6 pg (25.0-35.0); MEAN CORPUSCULAR HGB CONC 34.2 g/dl (31.0-37.0); MEAN PLATELET VOLUME 8.5 fl (7.0-11.0); RBC 3.6 10^6/uL (3.5-6.1); RED CELL DISTRIBUTION WIDTH 12.4 % (11.5-14.5); WHITE BLOOD COUNT 13.4 10^3/uL (4.5-11.0)
[2018-05-25 07:48] LABS: ALB/GLOB RATIO 1.1 (1.1-1.8); ALBUMIN 3.6 g/dL (3.0-4.8); ALT/SGPT 43 U/L (7-56); AST/SGOT 56 U/L (17-59); BLOOD UREA NITROGEN 15 mg/dL (7-21); GFR NON-AFRICAN AMERICAN > 60
[2018-05-25 08:02] LABS: HEPATITIS B SURFACE AG Negative (NEGATIVE)
[2018-05-25 08:08] LABS: HEPATITIS A IGM NEGATIVE (NEGATIVE); HEPATITIS B CORE AB NEGATIVE (NEGATIVE)
[2018-05-25 08:20] LABS: HEPATITIS C ANTIBODY NEGATIVE (NEGATIVE)
[2018-05-25 09:56] LABS: OSMOLALITY,URINE 1046 mosm/kg (300-1000)
[2018-05-25] MEDS ORDERED: ODEFSEY PO SCH (10:00)
[2018-05-25 12:26] VITALS: BP 117/76; RESP 18; TEMP 98
--- NOTE | 2018-05-25 13:00 | CON ---
DATE OF CONSULTATION: 05/25/2018 HISTORY: The patient is a 53-year-old male who presents with progressive substernal chest discomfort as well as dyspnea. The patient's past medical history is notable for HIV positivity in which his CD counts have been normal. In addition, he suffers from hypercholesterolemia. No previous cardiac history is noted. SOCIAL HISTORY: He denies active smoking. REVIEW OF SYSTEMS: Other than above were all negative. PHYSICAL EXAMINATION: VITAL SIGNS: Blood pressure 123/83, the heart rate is in the 80s. NECK: Negative JVD. LUNGS: Without rales. HEART: S1, S2. No rub noted. EXTREMITIES: Without edema. DIAGNOSTIC DATA: EKG shows normal sinus rhythm with nonspecific ST-T changes. Hemoglobin is 11. Chemistries: BUN and creatinine unremarkable. Troponins are negative x2. ProBNP is 306. Echocardiogram reveals good LV function with moderate size pericardial effusion without evidence for early tamponade. IMPRESSION: 1. Chest pain. 2. Dyspnea. 3. Moderate size pericardial effusion, which can explain his symptoms. 4. No evidence for early tamponade. 5. HIV history with normal counts. PLAN: Given these findings, I have discussed with the patient about the plus/minuses of pericardial biopsy with pericardiocentesis. The patient seems to be agreeable. We will transfer the patient to [facility] where Dr. Valencia, the cardiac surgeon, can perform the procedure. There is no availability to have this procedure done at [facility]. Dexter Foster MD
[2018-05-25 16:07] VITALS: PULSE 90
--- NOTE | 2018-05-25 22:31 | CP.PCM.DIS ---
<Eric Mooney - Last Filed: 05/25/18 22:27> Provider - Provider Date of Admission: 05/24/18 15:25 Attending physician: Matteo Aguilar MD Primary care physician: Dr. Maddox Consults: 05/24/18 15:23 Consult [Physician Consult] Stat Comment: large pericarial effusion, chest pain Consulting Provider: Hernandez Gregorio Consulting Physician: Hernandez Gregorio Reason for Consult: large pericarial effusion, chest pain 05/24/18 15:38 Cardiology Consult Stat Comment: large pericardial effusion with chest pain Consulting Provider: Dexter Foster Consulting Physician: Dexter Foster Reason for Consult: large pericardial effusion with chest pain 05/24/18 16:34 Infectious Disease Consult Stat Comment: Consulting Provider: Brandon Mccormack Consulting Physician: Brandon Mccormack Reason for Consult: hx of HIV and Hep B, new pericardial effusion Nephrology Consult Stat Comment: Consulting Provider: Ezio Mora Consulting Physician: Ezio Mora Reason for Consult: Chronic hyponatremia 05/24/18 22:23 Inpatient [employer] Core Measures Referral Routine Comment: Physician Instructions: Reason For Exam: EVALUATION Transition In Care/Readmission Reduction Routine Comment: Physician Instructions: Reason For Exam: EVALUATION Time Spent in preparation of Discharge (in minutes): 47 Diagnosis - Discharge Diagnosis (1) HIV (human immunodeficiency virus infection) Status: Chronic (2) Chest pain Status: Acute (3) Pericardial effusion Status: Acute Hospital Course - Lab Results Lab Results: Micro Results 05/24/18 22:22 Blood-Venous Blood Culture - Preliminary NO GROWTH AFTER 24 HOURS 05/24/18 22:00 Blood-Venous Blood Culture - Preliminary NO GROWTH AFTER 24 HOURS Most Recent Lab Values WBC 13.4 10^3/uL (4.5-11.0) H 05/25/18 05:00 RBC 3.60 10^6/uL (3.5-6.1) 05/25/18 05:00 Hgb 11.0 g/dL (14.0-18.0) L 05/25/18 05:00 Hct 32.2 % (42.0-52.0) L 05/25/18 05:00 MCV 89.4 fl (80.0-105.0) 05/25/18 05:00 MCH 30.6 pg (25.0-35.0) 05/25/18 05:00 MCHC 34.2 g/dl (31.0-37.0) 05/25/18 05:00 RDW 12.4 % (11.5-14.5) 05/25/18 05:00 Plt Count 384 10^3/uL (120.0-450.0) 05/25/18 05:00 MPV 8.5 fl (7.0-11.0) 05/25/18 05:00 Neut % (Auto) 71.1 % (50.0-68.0) H 05/24/18 11:30 Lymph % (Auto) 15.9 % (22.0-35.0) L 05/24/18 11:30 Fleming % (Auto) 11.0 % (1.0-6.0) H 05/24/18 11:30 Eos % (Auto) 1.8 % (1.5-5.0) 05/24/18 11:30 Baso % (Auto) 0.2 % (0.0-3.0) 05/24/18 11:30 Lymph # (Auto) 2.1 (1.2-3.4) 05/24/18 11:30 Fleming # (Auto) 1.4 (0.1-0.6) H 05/24/18 11:30 Eos # (Auto) 0.2 (0.0-0.7) 05/24/18 11:30 Baso # (Auto) 0.03 K/mm3 (0.0-2.0) 05/24/18 11:30 Absolute Neuts (auto) 9.33 (1.4-6.5) H 05/24/18 11:30 ESR 89 mm/hr (0.00-15.0) H 05/24/18 11:30 Sodium 127 mmol/L (132-148) L 05/25/18 05:00 Potassium 4.3 mmol/L (3.6-5.0) 05/25/18 05:00 Chloride 91 mmol/L (98-107) L 05/25/18 05:00 Carbon Dioxide 26 mmol/L (21-33) 05/25/18 05:00 Anion Gap 14 (10-20) 05/25/18 05:00 BUN 15 mg/dL (7-21) 05/25/18 05:00 Creatinine 0.9 mg/dl (0.8-1.5) 05/25/18 05:00 Est GFR ( Amer) > 60 05/25/18 05:00 Est GFR (Non-Af Amer) > 60 05/25/18 05:00 Random Glucose 93 mg/dL (70-110) 05/25/18 05:00 Hemoglobin A1c 6.1 % (4.2-6.5) 05/24/18 17:20 Serum Osmolality 257 mosm/kg (272-300) L 05/24/18 17:20 Calcium 8.0 mg/dL (8.4-10.5) L 05/25/18 05:00 Magnesium 1.8 mg/dL (1.7-2.2) 05/24/18 11:30 Total Bilirubin 0.6 mg/dL (0.2-1.3) 05/25/18 05:00 AST 56 U/L (17-59) 05/25/18 05:00 ALT 43 U/L (7-56) 05/25/18 05:00 Alkaline Phosphatase 74 U/L (38-126) 05/25/18 05:00 Lactate Dehydrogenase 435 U/L (333-699) 05/24/18 21:45 Total Creatine Kinase 504 U/L (35-230) H 05/24/18 21:45 CK-MB (CK-2) 3.7 ng/mL (0.0-3.6) H 05/24/18 21:45 CK-MB (CK-2) % Cancelled 05/24/18 21:45 Troponin I < 0.01 ng/mL 05/24/18 21:45 C-Reactive Protein 187.50 mg/L (0.0-9.9) H 05/25/18 07:00 NT-Pro-B Natriuret Pep 306 pg/mL (0-450) 05/24/18 11:30 Total Protein 7.0 g/dL (5.8-8.3) 05/25/18 05:00 Albumin 3.6 g/dL (3.0-4.8) 05/25/18 05:00 Globulin 3.4 gm/dL 05/25/18 05:00 Albumin/Globulin Ratio 1.1 (1.1-1.8) 05/25/18 05:00 Triglycerides 51 mg/dL (35-160) 05/24/18 17:20 Cholesterol 123 mg/dL (130-200) L 05/24/18 17:20 LDL Cholesterol Direct 89 mg/dL (0-129) 05/24/18 17:20 HDL Cholesterol 27 mg/dL (29-60) L 05/24/18 17:20 Lipase 16 U/L (23-300) L 05/24/18 11:30 TSH 3rd Generation 0.87 mIU/mL (0.46-4.68) 05/24/18 17:20 Urine Color Yellow (YELLOW) 05/24/18 13:00 Urine Appearance Clear (CLEAR) 05/24/18 13:00 Urine pH 6.0 (4.7-8.0) 05/24/18 13:00 Ur Specific [place] >= 1.030 (1.005-1.035) 05/24/18 13:00 Urine Protein 30 mg/dL (<30 mg/dL) H 05/24/18 13:00 Urine Glucose (UA) Negative mg/dL (NEGATIVE) 05/24/18 13:00 Urine Ketones Negative mg/dL (NEGATIVE) 05/24/18 13:00 Urine Blood Negative (NEGATIVE) 05/24/18 13:00 Urine Nitrate Negative (NEGATIVE) 05/24/18 13:00 Urine Bilirubin Negative (NEGATIVE) 05/24/18 13:00 Urine Urobilinogen 0.2 E.U./dL (<1 E.U./dL) 05/24/18 13:00 Ur Leukocyte Esterase Negative Charissa/uL (NEGATIVE) 05/24/18 13:00 Urine RBC 0 - 2 /hpf (0-2) 05/24/18 13:00 Urine WBC 0 - 2 /hpf (0-6) 05/24/18 13:00 Ur Epithelial Cells None /hpf (0-5) 05/24/18 13:00 Urine Bacteria Few /hpf (NONE) 05/24/18 13:00 Urine Other Fiber /hpf 05/24/18 13:00 Urine Osmolality 1046 mosm/kg (300-1000) H 05/24/18 08:16 Ur Random Sodium 52 meq/L 05/24/18 08:16 RPR Nonreactive (NONREACTIVE) 05/25/18 15:05 Hepatitis A IgM Ab Negative (NEGATIVE) 05/24/18 17:20 Hep Bs Antigen Negative (NEGATIVE) 05/24/18 17:20 Hep B Core IgM Ab Negative (NEGATIVE) 05/24/18 17:20 Hepatitis C Antibody Negative (NEGATIVE) 05/24/18 17:20 - Hospital Course Hospital Course: 53 year old male with past medical history significant for HIV (on Odefsey; last CD4 1000 per patient), 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 Three serial troponins were negative. EKG showed NSR with normal intervals. Chest X-Ray showed cardiomegaly, crowded BV markings, mild bibasilar atelectasis, and/or infiltrates and bilateral pleural effusions. CTA Chest showed large pericardial effusion. Bedside echocardiogram showed LV function within normal limits and moderate pericardial effusion. Cardiology and ICU were consulted. After cardiology evaluated the patient, it was determined that patient would need pericardial biopsy and pericardial window. Dr. Valencia (cardiac surgeon) at [facility] who accepted the patient under his service there. After discussion regarding risks, benefits and expected outcomes of the transfer, patient verbalized understanding and agreed to be transferred. MTALA was filled out and patient was transferred to [facility] ICU on 05/25/2018. ID and Nephrology were also consulted for history of HIV and chronic hyponatremia, respectively. Workup was initiated for these medical issues prior to patient being transferred. This was relayed to both the accepting physician and nurse receiving report. - Date & Time of H&P Date of H&P: 05/24/18 Time of H&P: 16:30 Discharge Exam - Head Exam Head Exam: NORMAL INSPECTION - Eye Exam Eye Exam: EOMI, Normal appearance, PERRL Pupil Exam: NORMAL ACCOMODATION, PERRL - ENT Exam ENT Exam: Normal Exam - Neck Exam Neck exam: Full Rom - Respiratory Exam Respiratory Exam: Clear to PA & Lateral, NORMAL BREATHING PATTERN, UNREMARKABLE - Cardiovascular Exam Cardiovascular Exam: REGULAR RHYTHM - GI/Abdominal Exam GI & Abdominal Exam: Normal Bowel Sounds, Unremarkable - Extremities Exam Extremities exam: normal inspection - Neurological Exam Neurological exam: Alert, CN II-XII Intact, Normal Gait, Oriented x3, Reflexes Normal - Psychiatric Exam Psychiatric exam: Normal Affect, Normal Mood - Skin Skin Exam: Dry, Intact, Normal Color, Warm Discharge Plan - Follow Up Plan Condition: GUARDED Disposition: OTHER INSTITUTION Instructions: Chest Pain (DC), Chest Pain (GEN) Additional Instructions: Please follow up with your primary care doctor, [facility] and infectious disease doctor within one week of discharge from [facility]. Please take all medications as prescribed. If your symptoms return, please seek emergency medical attention immediately. *Transferring to [facility] as per Dr. Foster.* Referrals: Dexter Foster MD [Staff Provider] - <Matteo Aguilar - Last Filed: 05/26/18 21:45> Provider - Provider Date of Admission: 05/24/18 15:25 Attending physician: Matteo Aguilar MD Consults: 05/24/18 15:23 Consult [Physician Consult] Stat Comment: large pericarial effusion, chest pain Consulting Provider: Hernandez Gregorio Consulting Physician: Hernandez Gregorio Reason for Consult: large pericarial effusion, chest pain 05/24/18 15:38 Cardiology Consult Stat Comment: large pericardial effusion with chest pain Consulting Provider: Dexter Foster Consulting Physician: Dexter Foster Reason for Consult: large pericardial effusion with chest pain 05/24/18 16:34 Infectious Disease Consult Stat Comment: Consulting Provider: Brandon Mccormack Consulting Physician: Brandon Mccormack Reason for Consult: hx of HIV and Hep B, new pericardial effusion Nephrology Consult Stat Comment: Consulting Provider: Ezio Mora Consulting Physician: Ezio Mora Reason for Consult: Chronic hyponatremia 05/24/18 22:23 Inpatient [employer] Core Measures Referral Routine Comment: Physician Instructions: Reason For Exam: EVALUATION Transition In Care/Readmission Reduction Routine Comment: Physician Instructions: Reason For Exam: EVALUATION Hospital Course - Lab Results Lab Results: Micro Results 05/24/18 22:22 Blood-Venous Blood Culture - Preliminary NO GROWTH AFTER 24 HOURS 05/24/18 22:00 Blood-Venous Blood Culture - Preliminary NO GROWTH AFTER 24 HOURS Most Recent Lab Values WBC 13.4 10^3/uL (4.5-11.0) H 05/25/18 05:00 RBC 3.60 10^6/uL (3.5-6.1) 05/25/18 05:00 Hgb 11.0 g/dL (14.0-18.0) L 05/25/18 05:00 Hct 32.2 % (42.0-52.0) L 05/25/18 05:00 MCV 89.4 fl (80.0-105.0) 05/25/18 05:00 MCH 30.6 pg (25.0-35.0) 05/25/18 05:00 MCHC 34.2 g/dl (31.0-37.0) 05/25/18 05:00 RDW 12.4 % (11.5-14.5) 05/25/18 05:00 Plt Count 384 10^3/uL (120.0-450.0) 05/25/18 05:00 MPV 8.5 fl (7.0-11.0) 05/25/18 05:00 Neut % (Auto) 71.1 % (50.0-68.0) H 05/24/18 11:30 Lymph % (Auto) 15.9 % (22.0-35.0) L 05/24/18 11:30 Fleming % (Auto) 11.0 % (1.0-6.0) H 05/24/18 11:30 Eos % (Auto) 1.8 % (1.5-5.0) 05/24/18 11:30 Baso % (Auto) 0.2 % (0.0-3.0) 05/24/18 11:30 Lymph # (Auto) 2.1 (1.2-3.4) 05/24/18 11:30 Fleming # (Auto) 1.4 (0.1-0.6) H 05/24/18 11:30 Eos # (Auto) 0.2 (0.0-0.7) 05/24/18 11:30 Baso # (Auto) 0.03 K/mm3 (0.0-2.0) 05/24/18 11:30 Absolute Neuts (auto) 9.33 (1.4-6.5) H 05/24/18 11:30 ESR 89 mm/hr (0.00-15.0) H 05/24/18 11:30 Sodium 127 mmol/L (132-148) L 05/25/18 05:00 Potassium 4.3 mmol/L (3.6-5.0) 05/25/18 05:00 Chloride 91 mmol/L (98-107) L 05/25/18 05:00 Carbon Dioxide 26 mmol/L (21-33) 05/25/18 05:00 Anion Gap 14 (10-20) 05/25/18 05:00 BUN 15 mg/dL (7-21) 05/25/18 05:00 Creatinine 0.9 mg/dl (0.8-1.5) 05/25/18 05:00 Est GFR ( Amer) > 60 05/25/18 05:00 Est GFR (Non-Af Amer) > 60 05/25/18 05:00 Random Glucose 93 mg/dL (70-110) 05/25/18 05:00 Hemoglobin A1c 6.1 % (4.2-6.5) 05/24/18 17:20 Serum Osmolality 257 mosm/kg (272-300) L 05/24/18 17:20 Calcium 8.0 mg/dL (8.4-10.5) L 05/25/18 05:00 Magnesium 1.8 mg/dL (1.7-2.2) 05/24/18 11:30 Total Bilirubin 0.6 mg/dL (0.2-1.3) 05/25/18 05:00 AST 56 U/L (17-59) 05/25/18 05:00 ALT 43 U/L (7-56) 05/25/18 05:00 Alkaline Phosphatase 74 U/L (38-126) 05/25/18 05:00 Lactate Dehydrogenase 435 U/L (333-699) 05/24/18 21:45 Total Creatine Kinase 504 U/L (35-230) H 05/24/18 21:45 CK-MB (CK-2) 3.7 ng/mL (0.0-3.6) H 05/24/18 21:45 CK-MB (CK-2) % Cancelled 05/24/18 21:45 Troponin I < 0.01 ng/mL 05/24/18 21:45 C-Reactive Protein 187.50 mg/L (0.0-9.9) H 05/25/18 07:00 NT-Pro-B Natriuret Pep 306 pg/mL (0-450) 05/24/18 11:30 Total Protein 7.0 g/dL (5.8-8.3) 05/25/18 05:00 Albumin 3.6 g/dL (3.0-4.8) 05/25/18 05:00 Globulin 3.4 gm/dL 05/25/18 05:00 Albumin/Globulin Ratio 1.1 (1.1-1.8) 05/25/18 05:00 Triglycerides 51 mg/dL (35-160) 05/24/18 17:20 Cholesterol 123 mg/dL (130-200) L 05/24/18 17:20 LDL Cholesterol Direct 89 mg/dL (0-129) 05/24/18 17:20 HDL Cholesterol 27 mg/dL (29-60) L 05/24/18 17:20 Lipase 16 U/L (23-300) L 05/24/18 11:30 TSH 3rd Generation 0.87 mIU/mL (0.46-4.68) 05/24/18 17:20 Urine Color Yellow (YELLOW) 05/24/18 13:00 Urine Appearance Clear (CLEAR) 05/24/18 13:00 Urine pH 6.0 (4.7-8.0) 05/24/18 13:00 Ur Specific [place] >= 1.030 (1.005-1.035) 05/24/18 13:00 Urine Protein 30 mg/dL (<30 mg/dL) H 05/24/18 13:00 Urine Glucose (UA) Negative mg/dL (NEGATIVE) 05/24/18 13:00 Urine Ketones Negative mg/dL (NEGATIVE) 05/24/18 13:00 Urine Blood Negative (NEGATIVE) 05/24/18 13:00 Urine Nitrate Negative (NEGATIVE) 05/24/18 13:00 Urine Bilirubin Negative (NEGATIVE) 05/24/18 13:00 Urine Urobilinogen 0.2 E.U./dL (<1 E.U./dL) 05/24/18 13:00 Ur Leukocyte Esterase Negative Charissa/uL (NEGATIVE) 05/24/18 13:00 Urine RBC 0 - 2 /hpf (0-2) 05/24/18 13:00 Urine WBC 0 - 2 /hpf (0-6) 05/24/18 13:00 Ur Epithelial Cells None /hpf (0-5) 05/24/18 13:00 Urine Bacteria Few /hpf (NONE) 05/24/18 13:00 Urine Other Fiber /hpf 05/24/18 13:00 Urine Osmolality 1046 mosm/kg (300-1000) H 05/24/18 08:16 Ur Random Sodium 52 meq/L 05/24/18 08:16 HERMINIO Screen Negative (Negative) 05/24/18 17:20 RPR Nonreactive (NONREACTIVE) 05/25/18 15:05 Hepatitis A IgM Ab Negative (NEGATIVE) 05/24/18 17:20 Hep Bs Antigen Negative (NEGATIVE) 05/24/18 17:20 Hep B Core IgM Ab Negative (NEGATIVE) 05/24/18 17:20 Hepatitis C Antibody Negative (NEGATIVE) 05/24/18 17:20 Attending/Attestation - Attestation I have personally seen and examined this patient.: Yes I have fully participated in the care of the patient.: Yes I have reviewed all pertinent clinical information, including history, physical exam and plan: Yes
--- NOTE | 2018-05-26 09:12 | CON ---
DATE: 05/25/2018 The patient is in room#260 earlier today, bed 2. CHIEF COMPLAINT: Weakness and . HISTORY OF PRESENT ILLNESS: This is a 53-year-old male with past medical history of hepatitis B, HIV, and past medical history of hyponatremia, who is an outpatient sees Dr. Maddox for HIV care who has the patient on Odefsey who is admitted from the Emergency Room, seen by Dr. Elizondo who states that the patient's CD4 count as per the patient is within normal limits who is admitted with chest pain and has been coughing and chest pain aggravated by lying down and feels better by leaning forward. There is dense low-grade. He states he had flu and viral illness like symptoms and possibly 3 to 4 weeks ago. He at this time has no chest pain and he states it is improved, and he is tolerating his HIV medication, Odefsey which is a combination of rilpivirine, tenofovir, and emtricitabine. PAST MEDICAL HISTORY: Significant for HIV, hepatitis B, hyponatremia, and high cholesterol. PAST SURGICAL HISTORY: Noncontributory. ALLERGIES: THE PATIENT HAS NO KNOWN ALLERGIES. MEDICATIONS AT HOME: Include Odefsey, Lipitor, Xanax. SOCIAL HISTORY: He works in the [employer] in the [email or web address] industry. He has no pets. No exposure to tuberculosis. No recent travel. PHYSICAL EXAMINATION: GENERAL: He is in bed, in no acute distress. Answering questions appropriately. VITAL SIGNS: Temperature of 99.6, heart rate of 86, respiratory rate of 20, blood pressure is 126/70. HEENT: Unremarkable. NECK: Supple. LUNGS: Have decreased breath sounds. HEART: Normal S1 and S2. ABDOMEN: Soft, nontender. No organomegaly. No rebound or guarding. LABORATORY DATA: White count of 13,100, hemoglobin of 12, platelets of 419. Chemistry reveals BUN of 15, creatinine of 0.9. CK is 504. Urinalysis is noted. Serology, hepatitis A and B and C are negative. Microbiology; no microbiology is available. Review of imaging reveals the patient had a CAT scan of the chest which reveals a large pericardial effusion. Dr. Dexter Foster's consult, the patient is reviewed. He states that the patient has chest pain which may be explained by his moderate size pericardial effusion. No evidence of early tamponade. He discussed with the patient's pluses and minus the pericardial biopsy, pericardiocentesis. Dr. Hernandez Gregorio's notes from this consult the patient's yesterday is reviewed. Dr. Aguilar's note of history and physical examination of the patient's is reviewed. The patient also had a chest x-ray which reveals cardiomegaly. The patient had an echo, the official report not available. ASSESSMENT AND PLAN: This is a 53-year-old male with history of positive human immunodeficiency virus, syndrome of inappropriate antidiuretic hormone secretion, hyponatremia, high cholesterol, and history of hepatitis B presenting with: 1. Chest pain with a large pericardial effusion, the patient with positive human immunodeficiency virus and has leukocytosis. Blood cultures have been ordered. Coxsackie serology and HERMINIO has been ordered. We have also ordered QuantiFERON. The patient has a coxsackie serology which has been ordered after Dr. Mccormack. HERMINIO workup is noted, no reason for any antibacterial treatment at this time pending further reevaluation of pericardial fluid and pericardial biopsy. Since the patient's human immunodeficiency virus according to the patient is within T-cells or within normal, we ordered HIV, PCR, and T cells. We will also order RPR pericarditis in the HIV patients. The patient is not exposed to any drugs as stated by the patient. We will make further recommendations. We will also order Neisseria urine and Chlamydia which may cause pericardial disease in HIV patients. The patient has Staphylococcus and Streptococcus and antibacterial family for his antibacterial patients. I will also order Histoplasma and antibody which rarely concurs pericardial disease in HIV patients. We discussed tuberculosis workup and we will follow with you. Nirav Segal MD
--- NOTE | 2018-05-26 13:43 | CARD ---
APPROVED REPORT Date of service: 05/24/2018 EXAM: Two-dimensional and M-mode echocardiogram with Doppler and color Doppler. INDICATION Pericardial Effusion 2D DIMENSIONS Left Atrium (2D)3.6 (1.6-4.0cm)IVSd1.2 (0.7-1.1cm) LVDd5.0 (3.9-5.9cm)PWd1.0 (0.7-1.1cm) LVDs3.2 (2.5-4.0cm)FS (%) 36.7 % LVEF (%)66.4 (>50%) M-Mode DIMENSIONS Aortic Root2.80 (2.2-3.7cm)Aortic Cusp Exc.2.10 (1.5-2.0cm) Aortic Valve AoV Peak Ucodakfr084.0cm/Karolyn Peak GR.6mmHg Mitral Valve MV E Clzuoqxp76.5cm/sMV A Lwxdhoeo09.5cm/sE/A ratio1.1 TDI E/Lateral E'0.0E/Medial E'0.0 Tricuspid Valve TR Peak [id number]/sRAP [id number] Peak Gr.18mmHg [id number] LEFT VENTRICLE The left ventricular function is normal. The left ventricular ejection fraction is within the normal range. RIGHT VENTRICLE The right ventricle is normal size. ATRIA The left atrium size is normal. The right atrium size is normal. AORTIC VALVE The aortic valve is thickened but opens well. MITRAL VALVE The mitral valve is thickened but opens well. TRICUSPID VALVE The tricuspid valve leaflets are thickened , but open well. PULMONIC VALVE The pulmonic valve is not well visualized. PERICARDIAL EFFUSION There is a moderate-large circumferential pericardial effusion. No evidence for early tamponade There is a moderate circumferential pericardial effusion. <Conclusion> Good LV function Moderate size circumferential pericardial effusion No evidence for eary tamponade
[2018-05-28 12:36] LABS: % CD4 (T HELPER CELL) 32 Percent (30-61); % CD8 (SUPPRESSOR T CELL) 35 Percent (12-42); ABSOLUTE CD4 CELLS 485 Cells/mcL (490-1740); ABSOLUTE CD8 CELLS 526 Cells/mcL (180-1170); ABSOLUTE LYMPHOCYTES 1523 Cells/mcL (850-3900); HELPER/SUPPRESSOR RATIO 0.92 Ratio (0.86-5.00)
== END 2018-05-25 17:25 | disposition short-term general hospital (02) | DRG 315 ==
LOC: ED 11:03 → ERH 15:25 → 2RNO 20:51
PROVIDERS: ADMIT Internal Medicine; ATTEND Internal Medicine
DX: I31.3 Pericardial effusion (noninflammatory) (principal); J98.11 Atelectasis; E22.2 Syndrome of inappropriate secretion of antidiuretic hormone; I51.7 Cardiomegaly; R07.9 Chest pain, unspecified; D72.829 Elevated white blood cell count, unspecified; E78.00 Pure hypercholesterolemia, unspecified; E78.5 Hyperlipidemia, unspecified; Z82.49 Family history of ischemic heart disease and other diseases of the circulatory system; Z86.19 Personal history of other infectious and parasitic diseases; R06.00 Dyspnea, unspecified; Z21 Asymptomatic human immunodeficiency virus [HIV] infection status

== ENCOUNTER 2018-07-19 10:32 | Outpatient (CLI) | payer OTHER | END 2018-07-19 10:33 | disposition home or self-care (01) | LOC: CARDIO 10:32 ==